=== PATIENT | female | born 1940 | race Two or more races ===

== ENCOUNTER 2021-08-06 13:15 | Inpatient (IN) | payer OTHER ==
[~2021-08-06] VITALS: Ht 157.5 cm; Wt 52.2 kg
[~2021-08-06 13:15] MED LIST: COZAAR100 MG PO; SYNTHROID88 MCG PO; VITALETS PO
[2021-08-11] MEDS ORDERED: MONTELUKAST SOD10 MG (10:48)
[2021-08-15] MEDS ORDERED: PROTONIX40 MG PO (08:18)
[2021-08-15] MEDS ORDERED: AMOX1TAB5 PO (08:18)
[2021-08-15] MEDS ORDERED: INTESTINEX680 M1 PO (08:18)
[2021-08-15] MEDS ORDERED: ULTRACET PO (08:19)
== END 2021-08-15 11:07 | disposition home or self-care (01) | DRG 331 ==
LOC: O/R 08-11 07:55 → SURH 08-11 13:15 → SURG 08-11 15:13
PROVIDERS: ADMIT Surgery; ATTEND Surgery
PROC: 07BC3ZX Excision of Pelvis Lymphatic, Percutaneous Approach, Diagnostic (ICD-10-PCS; 2021-08-11)
PROC: 3E0F7SF Introduction of Other Gas into Respiratory Tract, Via Natural or Artificial Opening (ICD-10-PCS; 2021-08-11)
PROC: 3E0F7GC Introduction of Other Therapeutic Substance into Respiratory Tract, Via Natural or Artificial Opening (ICD-10-PCS; 2021-08-11)
PROC: 0DBF4ZZ Excision of Right Large Intestine, Percutaneous Endoscopic Approach (ICD-10-PCS; principal; 2021-08-11 13:30)
PROC: 30233N1 Transfusion of Nonautologous Red Blood Cells into Peripheral Vein, Percutaneous Approach (ICD-10-PCS; 2021-08-13)
DX: C18.2 Malignant neoplasm of ascending colon (principal); D64.9 Anemia, unspecified; J45.20 Mild intermittent asthma, uncomplicated; K11.21 Acute sialoadenitis; I11.9 Hypertensive heart disease without heart failure; E03.8 Other specified hypothyroidism